=== PATIENT | female | born 1970 | race Caucasian/White ===

== ENCOUNTER 2017-01-21 22:19 | Emergency (ER) | payer OTHER ==
[2017-01-21 23:21] VITALS: BP 108/70; PULSE 70; TEMP 98; BMI 25.9
--- NOTE | 2017-01-21 23:41 | PDOC ---
History of Present Illness - General History Source: Patient Exam Limitations: No Limitations - History of Present Illness Initial Comments: 01/21/17 23:46 The patient is a 46 year old female with no significant past medical history who presents to the ED with complaints of headache for several days. The patient reports an occipital throbbing-like headache. She states she sometimes feels sensitive. Patient takes advil or motrin with slight relief of present symptoms. Patient reports a head injury 3 years ago and never followed up with a neurologist. Last menstrual period was a month ago. Denies fever or chills. Denies chest pain or shortness of breath. Denies blurry vision. Denies any other symptoms. <Daljit Browning - Last Filed: 01/22/17 03:01> - General History Source: Patient <Onel Zhang - Last Filed: 01/22/17 03:09> - General Chief Complaint: Headache Stated Complaint: PAIN Time Seen by Provider: 01/21/17 23:41 Past History <Daljit Browning - Last Filed: 01/22/17 03:01> - Past Medical History Anemia: No Asthma: No Cancer: No Cardiac Disorders: No CVA: No COPD: No DVT: No Dementia: No Diabetes: No Dialysis: No GI Disorders: No Disorders: No HTN: No Hypercholesterolemia: No Kidney Stones: No Liver Disease: No Psychiatric Problems: No Seizures: No Thyroid Disease: No Lung CA: No - Surgical History Abdominal Surgery: No Appendectomy: No Cardiac Surgery: No Cholecystectomy: No Gastric Stapling: No GI Surgery: No Lung Surgery: No Neurologic Surgery: No - Suicide/Smoking/Psychosocial Hx Smoking History: Former smoker Have you smoked in the past 12 months: Yes If you are a former smoker, when did you quit?: 05/2016 Information on smoking cessation initiated: No Hx Alcohol Use: No Drug/Substance Use Hx: No Substance Use Type: None <Onel Zhang - Last Filed: 01/22/17 03:09> - Past Medical History Allergies/Adverse Reactions: Allergies Allergy/AdvReac Type Severity Reaction Status Date / Time No Known Allergies Allergy Verified 01/21/17 23:21 Home Medications: Ambulatory Orders Acetaminophen/Caffeine/Butalb [Fioricet -] 1 tab PO Q6H #28 tablet MDD 4 11/24/ 17 Review of Systems - Review of Systems Able to Perform ROS?: Yes Comments:: 01/21/17 23:46 CONSTITUTIONAL: No reported: Fever, Chills, Diaphoresis, Generalized Weakness, Malaise, Loss of Appetite HEENT: No reported: Rhinorrhea, Nasal Congestion, Throat Pain, Throat Swelling, Difficulty Swallowing, Mouth Swelling, Ear Pain, Eye Pain, Visual Changes CARDIOVASCULAR: No reported: Chest Pain, Syncope, Palpitations, Irregular Heart Rate, Lightheadedness, Peripheral Edema RESPIRATORY: No reported: Cough, Shortness of Breath, SOB with Exertion, Orthopnea, Wheezing , Stridor, Hemoptysis GASTROINTESTINAL: No reported: Abdominal pain, Abdominal Distension, Nausea, Vomiting, Diarrhea, Constipation, Melena, Hematochezia GENITOURINARY: No reported: Dysuria, Frequency, Urgency, Hesitancy, Flank Pain, Genital Pain MUSCULOSKELETAL: No reported: Myalgia, Arthralgia, Joint Swelling, Back pain, Neck Pain SKIN: No reported: Rash, Itching, Pallor HEMEATOLOGIC/IMMUNOLOGIC: No reported: Easy Bleeding, Easy Bruising, Lymphadenopathy, Frequent infections ENDOCRINE: No reported: Unexplained Weight Gain, Unexplained Weight Loss, Heat Intolerance , Cold Intolerance NEUROLOGIC: + headache No reported: Focal Weakness, Paresthesias, Vertigo, Lightheadedness, Unsteady Gait, Seizure, Mental Status Changes, Incontinence PSYCHIATRIC: No reported: Anxiety, Depression All Other Systems: Reviewed and Negative <Daljit Browning - Last Filed: 01/22/17 03:01> *Physical Exam - Vital Signs Last Vital Signs Temp Pulse Resp BP Pulse Ox 98.0 F 70 18 108/70 94 L 01/21/17 23:15 01/21/17 23:15 01/21/17 23:15 01/21/17 23:15 01/21/17 23:15 - Physical Exam Comments: 01/21/17 23:47 GENERAL: The patient is awake, alert, and fully oriented, Nontoxic - in no acute distress. HEAD: Normocephalic, atraumatic. EYES: extraocular movements intact, sclera anicteric, conjunctiva clear. ENT: Normal voice, Moist mucous membranes. NECK: Normal range of motion, supple LUNGS: Breath sounds equal, clear to auscultation bilaterally. No wheezes, no rhonchi, no rales. HEART: Regular rate and rhythm, without murmur, rub or gallop. ABDOMEN: Soft, nontender, normoactive bowel sounds. No guarding, no rebound.No CVA tenderness EXTREMITIES: Normal range of motion, no edema. No clubbing or cyanosis. No cords, erythema, or tenderness. NEUROLOGICAL: No facial assymetry, Normal speech, PSYCH: Normal mood, normal affect. SKIN: Warm, Dry, normal turgor, <Daljit Browning - Last Filed: 01/22/17 03:01> - Vital Signs Last Vital Signs Temp Pulse Resp BP Pulse Ox 98.0 F 70 18 108/70 94 L 01/21/17 23:15 01/21/17 23:15 01/21/17 23:15 01/21/17 23:15 01/21/17 23:15 <Onel Zhang - Last Filed: 01/22/17 03:09> ED Treatment Course - RADIOLOGY Radiograph Interpretation: 01/22/17 03:01 EXAM: CT HEAD without contrast IMPRESSION: Normal head Reported by: Imaging aviation technician aircraft <Daljit Browning - Last Filed: 01/22/17 03:01> *DC/Admit/Observation/Transfer - Attestations Scribe Attestion: 01/21/17 23:47 Documentation prepared by Daljit Browning, acting as medical assistant cardiology for Onel Zhang MD <Daljit Browning - Last Filed: 01/22/17 03:01> - Discharge Dispostion Admit: No <Onel Zhang - Last Filed: 01/22/17 03:09> Diagnosis at time of Disposition: Headache - Discharge Dispostion Disposition: HOME Condition at time of disposition: Stable - Prescriptions Prescriptions: Acetaminophen/Caffeine/Butalb [Fioricet -] 1 tab PO Q6H #28 tablet MDD 4 - Referrals Referrals: Anastasia Ho [Primary Care Provider] - Kai Dubon MD [Staff Physician] - - Patient Instructions Printed Discharge Instructions: DI for Headache Additional Instructions: Please take medication as directed. Please follow up with the referral given to you for further evaluation of your headache - Post Discharge Activity
== END 2017-01-22 03:24 | disposition home or self-care (01) ==
LOC: JER 22:19 → EDBD 22:19 → JER 01-22 03:24
DX: R51 Headache (principal)
CPT/HCPCS: 70450-TC; 84703; 99283-25